=== PATIENT | female | born 1955 | race African-American/Black ===

== ENCOUNTER 2023-10-23 20:55 | Emergency (ER) | payer MEDICARE ==
[2023-10-23] MEDS ORDERED: cloNIDine 0.1 MG TAB ONE (21:22)
== END 2023-10-23 22:05 | disposition home or self-care (01) ==
LOC: MADERS 20:55
DX: I10 Essential (primary) hypertension (principal); E11.9 Type 2 diabetes mellitus without complications; E78.5 Hyperlipidemia, unspecified; Z79.82 Long term (current) use of aspirin; Z79.899 Other long term (current) drug therapy
CPT/HCPCS: 99283